=== PATIENT | female | born 1985 | race Hispanic/Latino ===

== ENCOUNTER 2017-10-08 21:11 | Emergency (ER) | payer OTHER ==
[2017-10-08 21:17] VITALS: BP 118/80; PULSE 73; RESP 18; TEMP 98.3; O2SAT 99
--- NOTE | 2017-10-08 22:47 | ED PDOC ---
HPI: Trauma/Fall - HPI Time Seen by Provider: 10/08/17 21:19 Chief Complaint (Nursing): Trauma Chief Complaint (Provider): Trauma History Per: Patient History/Exam Limitations: no limitations Onset/Duration Of Symptoms: Other (prior to arrival) Additional Complaint(s): 32 y/o female with no significant pmhx, who presents to the ED complaining of sudden onset low back pain radiating down her left buttock just prior to arrival s/p fall. Patient states she was leaning against a gate to a staircase which gave way and she fell backwards down the stairs. Reports she went down about 6 stairs. Also complaining of some right shoulder pain. Patient admits to drinking and is unsure if she hit her head or not. Also reports sustaining superficial bruises to right forearm and left leg. PMD: Provider KIM Past Medical History Reviewed: Historical Data, Nursing Documentation, Vital Signs Vital Signs: Last Vital Signs Temp 98.3 F 10/08/17 21:14 Pulse 73 10/08/17 21:14 Resp 18 10/08/17 21:14 BP 118/80 10/08/17 21:14 Pulse Ox 99 10/08/17 21:14 - Medical History PMH: No Chronic Diseases - Surgical History Other surgeries: Ear surgery - Family History Family History: States: Unknown Family Hx - Social History Current smoker - smoking cessation education provided: No Alcohol: Social - Home Medications Home Medications: Ambulatory Orders Medication Instructions Recorded Cyclobenzaprine [Flexeril] 5 mg PO Q8 PRN #15 tab 10/09/17 Ibuprofen [Motrin Tab] 600 mg PO Q8 PRN #30 tab 10/09/17 Lidocaine 5% [Lidoderm] 1 ea TD DAILY PRN #10 patch 10/09/17 - Allergies Allergies/Adverse Reactions: Allergies Allergy/AdvReac Type Severity Reaction Status Date / Time No Known Allergies Allergy Verified 10/08/17 21:13 Review of Systems ROS Statement: Except As Marked, All Systems Reviewed And Found Negative Musculoskeletal: Positive for: Shoulder Pain (right), Back Pain Skin: Positive for: Lesions (superficial abrasions to right forearm and left leg ) Physical Exam - Reviewed Nursing Documentation Reviewed: Yes Vital Signs Reviewed: Yes - Physical Exam Appears: Positive for: Non-toxic, In Acute Distress (painful distress, tearful) Skin: Positive for: Warm, Dry Eye Exam: Positive for: EOMI, PERRL, Conjunctival injection Neck: Positive for: Normal, Painless ROM, Supple Cardiovascular/Chest: Positive for: Regular Rate, Rhythm. Negative for: Murmur Respiratory: Positive for: Normal Breath Sounds. Negative for: Accessory Muscle Use, Respiratory Distress Gastrointestinal/Abdominal: Positive for: Soft. Negative for: Tenderness Back: Positive for: Normal Inspection, Other (tenderness to palpation of sacrum and left SI joint, negative straight leg raise, no step off or crepitus). Negative for: Vertebral Tenderness Extremity: Positive for: Normal ROM. Negative for: Deformity Lymphatic: Negative for: Adenopathy Neurologic/Psych: Positive for: Alert, Mood/Affect (anxious affect). Negative for: Motor/Sensory Deficits - Laboratory Results Urine POC: Negative - ECG O2 Sat by Pulse Oximetry: 99 (RA) Pulse Ox Interpretation: Normal - Other Rad LS spine X-Ray: Interpreted by Me (No fx/dislocation) RIGHT shoulder X-Ray: Interpreted by Me (No fx or dislocation) Medical Decision Making Medical Decision Making: Time: 21:31 Initial Impression: Fall, multiple injuries. Differential diagnoses include, but are not limited to traumatic brain injury, fracture, back strain, contusion Plan: --CT Head w/o contrast --ED Urine --ED Urine dipstick --Motrin tab 600mg PO --Ultram 50mg PO --Ice --X-Ray LS Spine --X-ray Right Shoulder --Reevaluation LS Spine xray: No fx/disloc RIGHT shouler dxray: No fx/disloc Accession No. 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 no. Patient Name: JAYSHREE REEVES Pt. Address: [address] [place] [address]. Rec #: [id number] [place] [address]: Johnie FOX,Itzel Mchugh Pt Order Location: [facility] : 1985 Female Age: 32 Order #: [id number] Reason for exam: fall head injury CT Scan HEAD W/O CONTRAST Exam Date: 10/08/17 This imaging exam was performed at [facility] EXAM: CT Head Without Intravenous Contrast CLINICAL HISTORY: 32 years old, female; Injury or trauma; Fall; Initial encounter; Blunt trauma (contusions or hematomas); Additional info: Fall head injury TECHNIQUE: Axial computed tomography images of the head/brain without intravenous contrast. All CT scans at this facility use one or more dose reduction techniques, viz.: automated exposure control; ma/kV adjustment per patient size (including targeted exams where dose is matched to indication; i.e. head); or iterative reconstruction technique. Coronal and sagittal reformatted images were created and reviewed. COMPARISON: No relevant prior studies available. FINDINGS: Brain: No intracranial hemorrhage. No mass. No definite edema. Ventricles: No hydrocephalus. Bones/joints: No acute fracture. Soft tissues: Unremarkable. Sinuses: Scattered mild mucosal thickening of ethmoid sinuses. Mastoid air cells: No mastoid effusion. Orbits: Unremarkable as visualized. IMPRESSION: 1. No intracranial hemorrhage. 2. Incidental/non-acute findings are described above. Dictated By: Errol Frederick MD Dictated Date/Time: 10/09/1721 Signed By: Errol Frederick MD Date Signed: 21 Transcribed By: BRIGID Transcribe Date/Time : 10/09/1721 ACYP02/ARIELAD 1230am Pt feels better. Eager to be discharged. BRIAN pt findings and plan of care. Scribe Attestation: Documented by Thomas Nix, acting as a scribe for Itzel Jett MD. Provider Scribe Attestation: All medical record entries made by the Scribe were at my direction and personally dictated by me. I have reviewed the chart and agree that the record accurately reflects my personal performance of the history, physical exam, medical decision making, and the department course for this patient. I have also personally directed, reviewed, and agree with the discharge instructions and disposition. Disposition - Clinical Impression Clinical Impression: Back contusion, Abrasion, Shoulder injury - Disposition Referrals: [facility] [Outside] Disposition: Routine/Home Disposition Time: 00:15 Condition: IMPROVED Additional Instructions: REST AND DRINK PLENTY OF HYDRATING FLUIDS. YOU MAY FEEL MORE SORE TOMORROW. PLEASE TAKE MEDICATIONS PRESCRIBED. FOLLOW UP WITH YOUR DOCTOR IN 2-3 DAYS TO SEE HOW YOU ARE DOING Prescriptions: Cyclobenzaprine [Flexeril] 5 mg PO Q8 PRN #15 tab PRN Reason: muscle spasm Ibuprofen [Motrin Tab] 600 mg PO Q8 PRN #30 tab PRN Reason: Pain, Moderate (4-7) Lidocaine 5% [Lidoderm] 1 ea TD DAILY PRN #10 patch PRN Reason: PAIN Instructions: Contusion (DC), Preventing Falls Forms: [employer] (Ukrainian)
--- NOTE | 2017-10-09 00:22 | CT ---
EXAM: CT Head Without Intravenous Contrast CLINICAL HISTORY: 32 years old, female; Injury or trauma; Fall; Initial encounter; Blunt trauma (contusions or hematomas); Additional info: Fall head injury TECHNIQUE: Axial computed tomography images of the head/brain without intravenous contrast. All CT scans at this facility use one or more dose reduction techniques, viz.: automated exposure control; ma/kV adjustment per patient size (including targeted exams where dose is matched to indication; i.e. head); or iterative reconstruction technique. Coronal and sagittal reformatted images were created and reviewed. COMPARISON: No relevant prior studies available. FINDINGS: Brain: No intracranial hemorrhage. No mass. No definite edema. Ventricles: No hydrocephalus. Bones/joints: No acute fracture. Soft tissues: Unremarkable. Sinuses: Scattered mild mucosal thickening of ethmoid sinuses. Mastoid air cells: No mastoid effusion. Orbits: Unremarkable as visualized. IMPRESSION: 1. No intracranial hemorrhage. 2. Incidental/non-acute findings are described above.
--- NOTE | 2017-10-09 09:09 | RAD ---
PROCEDURE: Radiographs of the Lumbar Spine. HISTORY: pain s/p fall COMPARISON: No prior. FINDINGS: BONES: Normal alignment. No listhesis. No fracture. DISC SPACES: Unremarkable. OTHER FINDINGS: None. IMPRESSION: Unremarkable radiographs of the lumbar spine.
--- NOTE | 2017-10-09 09:10 | RAD ---
PROCEDURE: Radiographs of the Right Shoulder HISTORY: pain s/p fall COMPARISON: No prior. FINDINGS: BONES: No acute fracture. JOINTS: Unremarkable. SOFT TISSUES: Normal. OTHER FINDINGS: None. IMPRESSION: No demonstrated fracture or dislocation.
== END 2017-10-09 00:23 | disposition home or self-care (01) ==
LOC: H.ER 21:11
DX: S30.0XXA Contusion of lower back and pelvis, initial encounter (principal); S50.11XA Contusion of right forearm, initial encounter; S09.90XA Unspecified injury of head, initial encounter; S49.92XA Unspecified injury of left shoulder and upper arm, initial encounter; W10.9XXA Fall (on) (from) unspecified stairs and steps, initial encounter; Y92.89 Other specified places as the place of occurrence of the external cause